=== PATIENT | male | born 1935 | race Caucasian/White ===

== ENCOUNTER → 2016-10-31 | Outpatient (CLI) | payer MEDICARE, BC ==
[~2016-10-31] MED LIST: HYDR-3498 PO; METH500T PO
--- NOTE | 2016-10-31 16:35 | RADRPT ---
PROCEDURE: US Carotids. CLINICAL INDICATION: Left amorosis fugax. TECHNIQUE: Multiple sonographic of the carotid arteries were obtained utilizing henley scale imaging . Color and Doppler imaging was performed. The images were reviewed on a PACS workstation. COMPARISON: No prior studies are available for comparison. FINDINGS: Location Right Left CCA 101 cm/sec 72 cm/sec Prox ICA 71 cm/sec 59 cm/sec Mid ICA 41 cm/sec 56 cm/sec Dist ICA 64 cm/sec 53 cm/sec ECA 65 cm/sec 99 cm/sec ICA/CCA 0.7 0.8 Antegrade flow is seen within the vertebral arteries bilaterally. No significant plaque is seen with in the carotid system bilaterally. No hemodynamically significant stenosis or occlusion is identifi ed. IMPRESSION: 1. No evidence for hemodynamically significant stenosis - validated velocity measurements with angio graphic measurements, velocity criteria are extrapolated from diameter data as defined by the [employer] of [employer] in Ultrasound Consensus Conference Radiology 2003; 229;340-346. This study does i ndirectly reference the measurement of the distal ICA diameter as the denominator for stenosis measu rement. 2. Antegrade flow seen within the vertebral arteries bilaterally. SRU Consensus Conference Criteria for the Diagnosis of Carotid Artery Stenosis Degree of Stenosis, % ICA PSV, cm/sec Plaque Estimate, % ICA/CCA PSV Ratio Normal <125 None <2.0 <50 <125 <50 <2.0 50 69 125-230 >50 2.0-4.0 >70 but less than near occlusion >230 >50 <4.0 Near occlusion High, low, or undetectable Visible Variable Total occlusion Undetectable Visible, no detectable lumen Not applicable *Cartoid artery stenosis: henley-scale and Doppler US diagnosis. Society of Radiologists in Ultrasound Consensus Conference. Radiology 2003; 229: 340-346 RPTAT: JJ .Carlo Dickey MD, Date Time Electronically viewed and signed by .Carlo Dickey MD, on 10/31/2016 16:35 .A/
== END | disposition home or self-care (01) ==
LOC: VAS 15:20
PROVIDERS: ATTEND Internal Medicine
DX: G45.3 Amaurosis fugax (principal)
CPT/HCPCS: 93880